=== PATIENT | male | born 1980 | race Caucasian/White ===

== ENCOUNTER 2020-10-25 14:49 | Emergency (ER) | payer OTHER ==
[~2020-10-25] VITALS: Ht 175.3 cm; Wt 108.9 kg
[2020-10-25 14:53] VITALS: BP 145/89
--- NOTE | 2020-10-25 14:53 | NUR ---
Patient to bed 9. RN evaluating patient at bedside.
--- NOTE | 2020-10-25 15:17 | NUR ---
@[id number] received care of 40 y/o male from home c/o dizziness started this morning, palpitations & cough x 3 weeks, myalgia 2 weeks ago. Pt has Med hx of Htn, DM. Allergy to Ibuprofen.
[2020-10-25 15:30] LABS: BASOPHILS # (AUTO) 0.1 K/uL (0.00-0.22); BASOPHILS % (AUTO) 0.6 % (0.0-2.0); EOSINOPHILS # (AUTO) 0.1 K/uL (0-0.4); EOSINOPHILS % (AUTO) 1.5 % (0.0-4.0); HEMATOCRIT 44.6 % (36-52); HEMOGLOBIN 14.9 g/dL (12.0-18.0); LYMPHOCYTES # (AUTO) 2.5 K/uL (2.0-11.5); LYMPHOCYTES % (AUTO) 26.4 % (20.5-51.1); MEAN CORPUSCULAR HEMOGLOBIN 28 pg (27-31); MEAN CORPUSCULAR HGB CONC 33 g/dL (33-37); MEAN CORPUSCULAR VOLUME 83.8 fL (80-94); MONOCYTES % (AUTO) 9.9 % (1.7-9.3); NEUTROPHILS # (AUTO) 5.9 K/uL (1.8-7.7); NEUTROPHILS % (AUTO) 61.6 % (42.2-75.2); PLATELET COUNT (AUTO) 474 K/uL (140-450); RED BLOOD CELL COUNT(AUTO) 5.32 MIL/uL (4.20-6.10); RED CELL DISTRIBUTION WIDTH 12.6 % (11.6-13.7); WHITE BLOOD COUNT (AUTO) 9.6 K/uL (4.8-10.8)
[2020-10-25 15:49] LABS: ALBUMIN 3.7 g/dL (3.4-5.0); ANION GAP 12.4 (8-16); CARBON DIOXIDE 27.9 mmol/L (21-32); CREATININE 0.9 mg/dL (0.6-1.3); POTASSIUM 4.3 mmol/L (3.5-5.1); TOTAL BILIRUBIN 0.3 mg/dL (0.0-1.0)
[2020-10-25 16:41] VITALS: BP 141/82
--- NOTE | 2020-10-25 16:44 | NUR ---
cleared for d/c by DR Vergara; d/c with instructions on cough, covid 19; pt fully understands all materials given re c/c; has no further questions; aox4; VSS; ambulatory with steady gait; no signs of acute distress
--- NOTE | 2020-10-26 18:07 | NUR ---
Covid results received from lab. Results = Positive. Hard copy requested from lab and placed in infection controls mailbox.
== END 2020-10-25 16:44 | disposition home or self-care (01) ==
LOC: MED 14:49
DX: U07.1 COVID-19 (principal); R00.2 Palpitations; R05 Cough; R42 Dizziness and giddiness; E11.9 Type 2 diabetes mellitus without complications; I10 Essential (primary) hypertension; Z98.890 Other specified postprocedural states
CPT/HCPCS: 71045; 80053; 84484; 85025; 93005; 99285; U0003